=== PATIENT | male | born 1995 | race Caucasian/White ===

== ENCOUNTER 2024-12-21 11:35 | Emergency (ER) | payer BC ==
[~2024-12-21] VITALS: Ht 182.8 cm; Wt 144.2 kg
[~2024-12-21 11:35] MED LIST: FLEXERIL5 MG PO; KEFLEX500 MG PO; MOTRIN800 MG PO; NAPROSYN500 MG PO; NKHM; VICODIN 5/500 505 MG PO; VOLTAREN50 MG PO
[2024-12-21 11:44] VITALS: BP 126/76
[2024-12-21] MEDS ORDERED: IBUPROFEN 600 MG TAB PO ONE (11:55)
[2024-12-21] MEDS ORDERED: SODIUM CHLORIDE 0.9% 1,000 ML IV ONE (11:55)
[2024-12-21] MEDS ORDERED: Ondansetron Hydrochloride 4 MG/2 ML VIAL IV ONE (11:55)
[2024-12-21 12:06] LABS: BASO % 0.3 % (0.0-1.0); EOS % 0.1 % (1.0-4.0); HEMATOCRIT 38.6 % (42.0-52.0); MEAN CELL VOLUME 85.8 fl (80.0-94.0); MEAN PLATELET VOLUME 9.3 fl (9.6-12.3); MONO # 1.1 10*3/uL (0.1-1.0); MONO % 7.6 % (3.0-9.0); NEUT # 10.9 10*3/uL (2.3-7.9); NEUT % 78.6 % (47.0-73.0); PLATELET COUNT AUTOMATED 311 10*3/uL (130-400); RED CELL DISTRI WIDTH 12.1 % (0-14.5); WHITE BLOOD COUNT 13.9 10*3/uL (4.8-10.8)
[2024-12-21 12:24] LABS: BUN 11 mg/dl (9-23); CHLORIDE 95 mmol/L (98-107); POTASSIUM 2.9 mmol/L (3.4-5.1)
[2024-12-21] MEDS ORDERED: POTASSIUM CHLORIDE 20 MEQ TAB PO ONE (12:35)
[2024-12-21] MEDS ORDERED: Ondansetron4 MG PO (14:22)
[2024-12-21] MEDS ORDERED: KLOR-CON M2020 ME1 PO (14:26)
== END 2024-12-21 14:29 | disposition home or self-care (01) ==
LOC: ED 11:35
PROVIDERS: Nurse Practitioner Family
DX: B34.9 Viral infection, unspecified (principal); E86.0 Dehydration; E87.6 Hypokalemia; E87.1 Hypo-osmolality and hyponatremia; J45.909 Unspecified asthma, uncomplicated; Z20.822 Contact with and (suspected) exposure to COVID-19; Z79.899 Other long term (current) drug therapy; Z98.890 Other specified postprocedural states